=== PATIENT | female | born 1950 | race Two or more races ===

== ENCOUNTER → 2017-09-08 | Outpatient (CLI) | payer OTHER ==
[~2017-09-08] MED LIST: AMLO1TAB80; LORA-445 PO; METO25TA35 PO; METO25TA91 PO; REGADENOSON 0.4 MG/5 ML SYRINGE ONE; SAXA5TAB PO
== END | disposition home or self-care (01) ==
LOC: RAD 08:12
PROVIDERS: ATTEND Internal Medicine Cardiovascular Disease
DX: R07.89 Other chest pain (principal)
CPT/HCPCS: 78452; 93017; A9502; J2785

== ENCOUNTER 2019-02-14 09:27 | Outpatient (CLI) | payer OTHER | END 2019-02-14 23:59 | disposition home or self-care (01) | LOC: CVU 09:27 | PROVIDERS: ATTEND Internal Medicine Cardiovascular Disease | DX: I86.8 Varicose veins of other specified sites (principal) | CPT/HCPCS: 93970 ==

== ENCOUNTER 2019-02-14 09:29 | Outpatient (CLI) | payer OTHER ==
[~2019-02-14 09:29] MED LIST changes: -REGADENOSON 0.4 MG/5 ML SYRINGE ONE
== END 2019-02-14 23:59 | disposition home or self-care (01) ==
LOC: RAD 09:29
PROVIDERS: ATTEND Nurse Practitioner Family
DX: R22.2 Localized swelling, mass and lump, trunk (principal)
CPT/HCPCS: 76705

== ENCOUNTER → 2020-01-30 | Outpatient (CLI) | payer OTHER | END | disposition home or self-care (01) | LOC: CFH 11:11 | PROVIDERS: ATTEND Nurse Practitioner Family | DX: M47.812 Spondylosis without myelopathy or radiculopathy, cervical region (principal); M25.511 Pain in right shoulder | CPT/HCPCS: 72040 ==